=== PATIENT | male | born 1965 | race Caucasian/White ===

== ENCOUNTER → 2017-09-23 | Outpatient (CLI) | payer OTHER ==
--- NOTE | 2017-09-24 06:02 | CPEEG ---
[f rep st] ELECTROENCEPHALOGRAM DATE OF STUDY: 09/23/2017 INTERPRETATION: Normal EEG during wakefulness and sleep. There were no potentially epileptogenic ab normalities present in the recording. REPORT: This EEG contains 10 Hz alpha activity to the posterior head regions. There was no abnormal activation at rest, during photic stimulation or hyperventilation. Patient became drowsy and fell a sleep during the recording. There was no abnormal activation during drowsiness, sleep, or during rosaline es of arousal. /[id number]/MODL
== END ==
LOC: FCPNEURO 09:48
PROVIDERS: ATTEND Physician Assistant Medical
DX: R40.4 Transient alteration of awareness (principal)